=== PATIENT | male | born 1965 | race Two or more races ===

== ENCOUNTER 2021-01-22 03:49 | Inpatient (IN) | payer MEDICAID ==
[~2021-01-22] VITALS: Ht 165.1 cm; Wt 81.6 kg
[2021-01-22] MEDS ORDERED: LEVOFLOXACIN 750 MG /D5W 150ML 750 MG in PREMIX 1 EA IV SCH (04:30)
[2021-01-22] MEDS ORDERED: LEVOFLOXACIN 250 MG /D5W 50 ML 250 MG in PREMIX 1 EA IV SCH (04:30)
[2021-01-22] MEDS ORDERED: PNEUMOCOCCAL 23-VAL P-SAC VAC 0.5 ML VIAL IM ONE (04:30)
[2021-01-22 05:11] LABS: BASOPHILS # (AUTO) 0.3 K/uL (0.0-0.2); BASOPHILS % (AUTO) 1.4 % (0.0-2.0); EOSINOPHILS % (AUTO) 2.3 % (0.0-6.0); HEMATOCRIT 30 % (39-51); HEMOGLOBIN 9.5 g/dL (13.5-17.5); LYMPHOCYTES # (AUTO) 2.2 K/uL (0.8-4.8); LYMPHOCYTES % (AUTO) 9.6 % (20.0-44.0); MEAN CORPUSCULAR HGB CONC 32 g/dl (31.0-36.0); MEAN CORPUSCULAR VOLUME 94 fL (80-96); MONOCYTES # (AUTO) 1.4 K/uL (0.1-1.30); MONOCYTES % (AUTO) 6.4 % (2.0-12.0); NEUTROPHILS # (AUTO) 18.2 K/uL (1.8-8.9); NEUTROPHILS % (AUTO) 80.3 % (43.0-81.0); PLATELET COUNT (AUTO) 574 K/uL (150-450); RED BLOOD CELL COUNT(AUTO) 3.13 MIL/uL (4.5-6.0); WHITE BLOOD COUNT (AUTO) 22.7 K/uL (4.3-11.0)
[2021-04-16] MEDS ORDERED: IV NS 0.9% 1,000 ML IV PRN (15:30)
[2021-04-16] MEDS ORDERED: ACET325C7 PO ×2 (15:56→16:02)
[2021-04-16] MEDS ORDERED: ACET160E36 PO (15:57)
[2021-04-16] MEDS ORDERED: ALPR-322 PO (16:02)
[2021-05-27] MEDS ORDERED: MIDAZOLAM HCL 2 MG/2ML VIAL IV PRN (13:30)
[2021-05-27] MEDS ORDERED: FENTANYL PF 250MCG/5ML AMPUL IV PRN (13:30)
[2021-05-27] MEDS ORDERED: FLUMAZENIL 0.5 MG VIAL IV PRN (13:30)
[2021-05-27] MEDS ORDERED: NALOXONE PREFILLED SYRINGE 2 MG/2 ML SYRINGE IV PRN (13:30)
[2021-05-29] MEDS ORDERED: ACETAMINOPHEN W/CODEINE ELIXIR 5 ML UDC PO PRN (12:30)
[2021-05-29] MEDS ORDERED: FLUMAZENIL 0.5 MG VIAL IV PRN (12:30)
[2021-05-29] MEDS ORDERED: NALOXONE PREFILLED SYRINGE 2 MG/2 ML SYRINGE IV PRN (12:30)
[2021-06-10] MEDS ORDERED: NALOXONE PREFILLED SYRINGE 2 MG/2 ML SYRINGE IV PRN (11:00)
[2021-06-10] MEDS ORDERED: FENTANYL PF 250MCG/5ML AMPUL IV PRN (11:00)
[2021-06-10] MEDS ORDERED: MIDAZOLAM HCL 2 MG/2ML VIAL IV PRN (11:00)
[2021-06-10] MEDS ORDERED: FLUMAZENIL 0.5 MG VIAL IV PRN (11:00)
[2021-06-10] MEDS ORDERED: FAMOTIDINE (20 MG) 20 MG TABLET PO SCH ×2 (13:00→14:00)
[2021-06-10] MEDS ORDERED: ACETAMINOPHEN 325 MG TABLET PO SCH ×2 (14:00)
[2021-06-10] MEDS ORDERED: ALBUTEROL FS 2.5 MG/0.5 ML VIAL.NEB NEB SCH (15:30)
== END 2021-06-10 15:12 | disposition home or self-care (01) | DRG 861 ==
LOC: TRANSITION 03:49 → OBSVTOIN 03:49 → UNDODISOB 08:33 → MEDSG1 06-10 12:33
PROVIDERS: ADMIT Internal Medicine; ATTEND Internal Medicine
DX: Z00.00 Encounter for general adult medical examination without abnormal findings (principal)
CPT/HCPCS: 36415; 82607-TC; 84484-TC; 85025-TC; 86850-TC; 90732; A4216; G0378; J1956